=== PATIENT | male | born 1975 ===

== ENCOUNTER 2020-01-04 08:24 | Emergency (ER) | payer OTHER, SELFPAY ==
[2020-01-04 08:40] VITALS: BP 107/64; PULSE 68; RESP 16; TEMP 36.5; O2SAT 100; BMI 25.6
--- NOTE | 2020-01-04 08:59 | ED.SKABFB ---
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 Reports the rash is under his axillary aspect, behind his knees, and his groin area concern for possible scabies although has not been exposed to scabies that he knows of. Denies any additional complaints or concerns at this time. Related Data Previous Rx's Medication Instructions Recorded diphenhydramine HCl [Benadryl 25 mg PO TID PRN #20 tab 01/04/20 Allergy] famotidine [Pepcid] 20 mg PO BID #20 tab 01/04/20 loratadine [Claritin] 10 mg PO DAILY #20 tab 01/04/20 permethrin 1 applic TOPICAL Q14D #60 g 01/04/20 Allergies Allergy/AdvReac Type Severity Reaction Status Date / Time No Known Allergies Allergy Verified 01/04/20 08:52 Review of Systems Review of Systems: Constitutional : No Fever, No Chills , no body aches, no recent illness Head/Face: No facial swelling, No facial redness ENT/Mouth : No oral/throat swelling, No Hoarseness, No Swallowing Difficulty Eyes: No Eye Pain, No Swelling, No Redness Cardiovascular : No Chest Pain, No SOB, No palpitations Respiratory : No Cough, No Sputum, No Wheezing, No Smoke Exposure, No Dyspnea Gastrointestinal : No Nausea, No Vomiting, No Diarrhea, No abdominal Pain Genitourinary : No Dysuria, No Urinary Frequency, No Hematuria Musculoskeletal : No joint pain, No Myalgias, No Joint Swelling Skin : No Skin Lesions, positive rash Neuro : No Weakness, No Numbness, No Headache, No dizziness, No tingling Psych : No Anxiety/Panic, No Depression Heme/Lymph: No Bruising, No Lymphadenopathy Endocrine : No Polyuria, No Polydipsia Denies changes in lotions or detergents. Denies new medications or any changes in medications. Denies drainage from rash. Denies any recent sick contacts or recent travel. Yes all other systems are reviewed and are negative PMFSH Past Medical History Attestation statement: The following information was validated with the patient. Medical History No known health problems Social History Social History Advance Directives: No Advance Directives Information Provided: No Physical Exam Vital Signs: Vital Signs: Last Vital Signs Temp 97.7 F 01/04/20 08:40 Pulse 68 01/04/20 08:40 Resp 16 01/04/20 08:40 BP 107/64 01/04/20 08:40 Pulse Ox 100 01/04/20 08:40 Body Mass Index 25.6 vital signs have been reviewed as normal and appeared to be correct. Blood pressure normal. Heart rate normal. Respiration rate normal. Temperature normal. Oxygen saturation normal. Appearance: Alert. Oriented X3. No acute distress. Head: Normal external exam. Normocephalic. Atraumatic. No Mcnulty signs noted. No raccoon eyes noted Eyes: PERRLA. EOMI. Conjunctiva and sclera normal. Eyelids normal. ENT: EAC normal. TM's Normal. Pharynx normal. Uvula midline. Moist mucous membranes. No trismus noted. No drooling noted. No muffled voice noted. Neck: Normal inspection. Neck supple. FROM. No adenopathy. Thyroid Normal. No meningeal signs. No neck mass noted. CVS: Normal heart rate and rhythm. Heart sound normal. No murmurs noted. Pulses normal throughout. Respiratory: No respiratory distress. Painless inspiration. Breath sounds normal. No wheezes/rales/rhonchi noted. Chest nontender. No accessory muscle usage noted or decreased air movement noted. Abdomen: Soft and nontender. Bowel sounds normal in all 4 quadrants. No distention noted. No organomegaly noted. No visible injury noted. Back: No CVA tenderness. Full range of motion noted. Skin: Skin warm and dry. Normal skin color. Normal skin turgor. Prumacular papular lesions with burrows to axillary, folds behind the knee, in between the groin area. No signs of infection. No lacerations noted. Extremities: No lower extremity edema. Extremities exhibit normal range of motion. Extremities nontender. Neuro: Oriented X 3. No motor deficit. No sensory deficit. Reflexes normal. MDM - Skin/Abscess/Foreign Bdy Medical Records Attestation: I reviewed the patient's medical records. Discharge Plan Discharge Clinical Impression: Scabies, Rash Patient Disposition: Home, Self-Care Instructions: Scabies (ED) Prescriptions: New permethrin 5 % cream 1 applic topical Q14D Qty: 60 RF: 1 loratadine [Claritin] 10 mg tablet 10 mg PO DAILY Qty: 20 RF: 0 famotidine [Pepcid] 20 mg tablet 20 mg PO BID Qty: 20 RF: 0 diphenhydramine HCl [Benadryl Allergy] 25 mg tablet 25 mg PO TID PRN (Reason: itching) Qty: 20 RF: 0 Referrals: Mireille Plasencia MD [Primary Care Provider] - 2 days Stand Alone Forms: Work/School Release Print Language: Zimbabwean
== END 2020-01-04 09:24 | disposition home or self-care (01) ==
PROVIDERS: Emergency Provider Emergency Medicine; PCP Family Medicine
DX: B86 Scabies (principal); R21 Rash and other nonspecific skin eruption; Z79.899 Other long term (current) drug therapy
CPT/HCPCS: 99283

== ENCOUNTER → 2021-11-04 12:48 | Outpatient (BNVA) | payer SELFPAY | PROVIDERS: PCP Family Medicine; Visit Provider Physician Assistant | DX: Z02.79 Encounter for issue of other medical certificate (principal) ==

== ENCOUNTER 2021-12-17 13:06 | Emergency (ER) | payer OTHER, SELFPAY ==
--- NOTE | ~2021-12-17 | XR_ITS ---
EXAMINATION: XR CHEST CLINICAL INFORMATION: Bradycardia COMPARISON: None TECHNIQUE: Frontal view of the chest was obtained. FINDINGS: No significant abnormality is noted involving the heart, lungs, mediastinum, bony thorax or soft tissues. XR/XR chest 1V IMPRESSION: Unremarkable examination.
--- NOTE | 2021-12-17 13:08 | ECG_ITS ---
Test Reason : cp Blood Pressure : / mmHG Vent. Rate : 060 BPM Atrial Rate : 060 BPM P-R Int : 144 ms QRS Dur : 086 ms QT Int : 364 ms P-R-T Axes : 040 051 035 degrees QTc Int : 364 ms Normal sinus rhythm Normal ECG When compared with ECG of 28-JUN-2009 21:01, No significant change was found Referred By: Generic ED Physician Electronically Signed By:CARYL CARPENTER MD
[2021-12-17 13:10] VITALS: BP 127/76; PULSE 59; RESP 16; TEMP 36.6; O2SAT 98; BMI 25.6
[2021-12-17 13:20] LABS: MANUAL DIFF FLAG NO
[2021-12-17 13:22] LABS: Basophils Percent Auto 0.4 % (0-2); Eosinophils Absolute Auto 0.3 X10*3/uL (0.0-0.4); Eosinophils Percent Auto 3.2 % (0-4); Hematocrit 46.4 % (42.0-52.0); Hemoglobin 15.2 g/dl (14.0-18.0); Imm Gran Abs Auto 0.03 X10*3/uL (0.00-0.03); Imm Gran Pct Auto 0.4 % (0.0-0.4); Lymphocytes Absolute Auto 3.1 X10*3/uL (1.2-4.9); Lymphocytes Percent Auto 36.1 % (20-40); Mean Corpuscular HGB Conc 32.8 g/dl (31.0-36.0); Mean Corpuscular Hemoglobin 28.4 pg (27.0-33.0); Mean Corpuscular Volume 86.7 fL (80.0-98.0); Mean Platelet Volume 9.6 fL (9.4-12.4); Monocytes Absolute Auto 0.8 X10*3/uL (0.1-1.2); Neutrophils Absolute Auto 4.3 x10*3/uL (2.0-8.3); Neutrophils Percent Auto 50.9 % (45-73); Platelet Count 229 X10*3/uL (160-400); Red Blood Count 5.35 X10*6/uL (4.60-5.80); Red Cell Distribution Width 13.3 % (11.0-16.0); White Blood Count 8.5 X10*3/uL (4.8-10.8)
[2021-12-17 13:35] LABS: Anion Gap 15 (12-20); Blood Urea Nitrogen 12 mg/dL (9-16); Calcium 9.6 mg/dL (8.4-10.2); Carbon Dioxide 25 mmol/L (22-29); Chloride 105 mmol/L (96-108); Creatinine Clr Calc Pharmacy 108.2; Estimated Glomerular Filt Rate > 60; Glucose Random 66 mg/dL (60-115); Potassium 4.2 mmol/L (3.3-5.1); Sodium 141 mmol/L (135-145)
[2021-12-17 13:42] LABS: Troponin-I High Sensitivity < 3.5 ng/L (<3.5-35.0)
--- NOTE | 2021-12-17 16:34 | ED.CHESTPAIN ---
HPI - Chest Pain General Chief Complaint: Chest Pain Stated Complaint: Chest pain/L arm pain Time Seen by Provider: 12/17/21 16:33 Source: patient Mode of arrival: ambulatory Limitations: no limitations History of Present Illness HPI narrative: Patient is a 46 year old assigned male at with a history of varicose veins presenting to the emergency department today with left sided chest pain and dizziness. Patient states that he has had 2 episodes of left sided chest pain and dizziness. Patient states that the first episode was yesterday and resolved, patient states that the second one was today and it has also resolved. 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 Patient denies any current dizziness, lightheadedness, abdominal pain, nausea, vomiting, fever, chills, blurry vision, double vision, loss of vision, chest pain, difficulty breathing, shortness of breath, back pain, night sweats, pain with urination, increased urinary frequency, increased urinary urgency, blood in his urine or stool, syncope or a near syncopal episode, recent trauma or falls, bowel incontinence, bladder incontinence, bowel retention, bladder retention, or any other complaints at this time. 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) Pain location: left chest Pain radiation: none Severity: mild Pain scale (0-10): 5 Quality: heaviness and dull Relieving factors: nothing Exacerbating factors: nothing Treatment prior to arrival: none Related Data Home Medications Medication Instructions Recorded Confirmed propranolol 60 mg tablet 60 mg PO ONCE 11/04/21 Previous Rx's Medication Instructions Recorded diphenhydramine HCl 25 mg tablet 25 mg PO TID PRN itching #20 tabs 01/04/20 (Benadryl Allergy) famotidine 20 mg tablet (Pepcid) 20 mg PO BID #20 tabs 01/04/20 loratadine 10 mg tablet (Claritin) 10 mg PO DAILY allergies/itching 01/04/20 #20 tabs permethrin 5 % topical cream 1 applic topical Q14D scabies 2 01/04/20 doses #60 grams Allergies Allergy/AdvReac Type Severity Reaction Status Date / Time No Known Allergies Allergy Verified 11/04/21 13:48 Review of Systems Constitutional: Constitutional: Reports no additional constitutional complaints, Denies chills, Denies fever(s) and Denies night sweats Eyes: Eyes: Reports no additional eye complaints, Denies blurry vision, Denies change in vision, Denies diplopia, Denies eye discharge, Denies loss of vision and Denies eye pain ENT: Denies dizziness Cardiovascular: Cardiovascular: Reports no additional cardiovascular complaints, Denies chest pain, Denies lightheadedness, Denies Loss of Consciousness and Denies dyspnea Respiratory: Respiratory: Reports no additional respiratory complaints and Denies dyspnea Gastrointestinal: Gastrointestinal: Reports no additional gastrointestinal complaints, Denies abdominal pain, Denies melena, Denies hematochezia, Denies change in bowel habits and Denies change in stool character Genitourinary: Genitourinary: Reports no additional male genitourinary complaints, Denies hematuria, Denies oliguria, Denies difficulty urinating, Denies dysuria, Denies urinary frequency, Denies urinary hesitancy, Denies urinary incontinence and Denies urinary urgency Musculoskeletal: Musculoskeletal: Reports no additional musculoskeletal complaints, Denies numbness and Denies tingling Neurologic: Denies dizziness, Denies loss of vision, Denies numbness and Denies tingling Psychiatric: Psychiatric: Reports no additional psychiatric complaints Endocrine: Endocrine: Reports no additional endocrine complaints Hematologic/Lymphatic: Hematologic/Lymphatic: Reports no additional hematologic/lymphatic complaints Allergic/Immunologic: Allergic/Immunologic: Reports no additional allergic/immunologic complaints PMFSH Past Medical History Attestation statement: The following information was validated with the patient. Source: old records reviewed Medical History No known health problems Social History Social History Patient Tobacco Use Status: Current everyday Tobacco user Tobacco use type: Cigarette Cigarettes Per Day: 6 Use of substances other than those prescribed or required for medical reasons: No Advance Directives: No Physical Exam Vital Signs: Vital Signs: Last Vital Signs Temp 98 F 12/17/21 13:10 Pulse 56 12/17/21 16:47 Resp 16 12/17/21 16:47 BP 105/65 12/17/21 16:47 Pulse Ox 97 12/17/21 16:47 O2 Del Method 12/17/21 16:47 BMI result Body Mass Index 25.6 Const: General: cooperative, no acute distress, alert and awake Nutritional Appearance: well nourished Orientation/consciousness: patient oriented x3 Limitations: no limitations HEENT: Head: Yes normal to inspection and Yes atraumatic Ears: hearing grossly normal bilaterally and external ears normal General nose exam: Normal external nose present, no nasal discharge noted and no epistaxis Face and sinus: Yes normal facial exam, No abrasion and No laceration Mouth: Normal oral and palatal mucosa present, no drooling and no muffled voice Eyes: General: appearance normal, both eyes and all related structures Periorbital: periorbital findings normal Eyelids: Yes eyelids normal Conjunctivae: conjunctivae normal Pupils: Equal, round and reactive pupils present EOM: EOMs intact bilaterally Neck: Neck: Yes normal visual inspection, Yes full ROM and Yes no lymphadenopathy Chest: Chest palpation & inspection: normal inspection of the chest Resp: Effort & Inspection: normal respiratory effort and able to speak in complete sentences Auscultation: clear to auscultation bilaterally Cardio: Rate: regular rate Rhythm: regular rhythm GI: Inspection: Yes normal to inspection Neuro: General: patient oriented x3 and moves all extremities Cranial nerves: Yes Equal, round and reactive pupils present Cognition (Neuro): normal cognition Motor exam (neuro): 5/5 motor strength present throughout Sensory Exam: Normal double simultaneous stimulation for sensation Coordination: [id number] test normal Extrem: General: Yes normal to inspection, Yes full ROM and Yes capillary refill normal Psych: Appearance: grossly normal Mental Status: mental status grossly normal Affect: normal affect Attitude: cooperative Thought process: Normal thought process present Thought content: Normal thought content present Insight: Good insight present (Psych) MDM - Chest Pain MDM Narrative Medical decision making narrative: Patient is a 46 year old assigned male at with a history of varicose veins presenting to the emergency department today with chest pain that has resolved. Patient's physical exam was unremarkable. Patient's blood work was unremarkable including a normal troponin and d dimer. Patient's EKG was unremarkable. Patient's chest x-ray showed no acute process. I explained my physical exam findings as well as all test results to the patient. I answered all questions asked by the patient. I stressed the importance of the patient taking his medication as prescribed. 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 I stressed the importance of the patient returning to the emergency department immediately if his symptoms were to worsen or if he were to develop any dizziness, shortness of breath, difficulty breathing, chest pain, blurry vision, loss of vision, nausea, vomiting, abdominal pain, fever, chills, back pain, or any other complaints. Patient verbalized agreement and understanding with this treatment plan and discharge. Differential Diagnosis Differential diagnosis: Likely atypical chest pain Medical Records Data Attestation: I reviewed the patient's medical records. Lab Data Attestation: I reviewed the patient's lab results. Result diagrams: 12/17/21 13:17 12/17/21 13:17 Labs: Lab Results 12/17/21 12/17/21 12/17/21 Range/Units 13:17 13:17 13:17 WBC 8.5 (4.8-10.8) X10*3/uL RBC 5.35 (4.60-5.80) X10*6/uL Hgb 15.2 (14.0-18.0) g/dl Hct 46.4 (42.0-52.0) % MCV 86.7 (80.0-98.0) fL MCH 28.4 (27.0-33.0) pg MCHC 32.8 (31.0-36.0) g/dl RDW 13.3 (11.0-16.0) % Plt Count 229 (160-400) X10*3/uL MPV 9.6 (9.4-12.4) fL Immature Gran % (Auto) 0.4 (0.0-0.4) % Neut % (Auto) 50.9 (45-73) % Lymph % (Auto) 36.1 (20-40) % [place] % (Auto) 9.0 (2-11) % Eos % (Auto) 3.2 (0-4) % Baso % (Auto) 0.4 (0-2) % Lymph # (Auto) 3.1 (1.2-4.9) X10*3/uL [place] # (Auto) 0.8 (0.1-1.2) X10*3/uL Eos # (Auto) 0.3 (0.0-0.4) X10*3/uL Baso # (Auto) 0.0 (0.0-0.2) X10*3/uL Abs Immat Gran (auto) 0.03 (0.00-0.03) X10*3/uL Absolute Neuts (auto) 4.3 (2.0-8.3) x10*3/uL Absolute Nucleated RBC 0.000 (0.0-0.012) X10*3/uL Nucleated RBC % (auto) 0.0 (0.0-0.2) /100WBC D-Dimer High Sensitivty NG/ML Sodium 141 (135-145) mmol/L Potassium 4.2 (3.3-5.1) mmol/L Chloride 105 (96-108) mmol/L Carbon Dioxide 25 (22-29) mmol/L Anion Gap 15 (12-20) BUN 12 (9-16) mg/dL Creatinine 1.03 (0.5-1.4) mg/dL Estim Creat Clear Calc 108.2 Estimated GFR > 60 Random Glucose 66 (60-115) mg/dL Calcium 9.6 (8.4-10.2) mg/dL Troponin I High Sens < 3.5 (<3.5-35.0) ng/L 12/17/21 Range/Units 16:50 WBC (4.8-10.8) X10*3/uL RBC (4.60-5.80) X10*6/uL Hgb (14.0-18.0) g/dl Hct (42.0-52.0) % MCV (80.0-98.0) fL MCH (27.0-33.0) pg MCHC (31.0-36.0) g/dl RDW (11.0-16.0) % Plt Count (160-400) X10*3/uL MPV (9.4-12.4) fL Immature Gran % (Auto) (0.0-0.4) % Neut % (Auto) (45-73) % Lymph % (Auto) (20-40) % [place] % (Auto) (2-11) % Eos % (Auto) (0-4) % Baso % (Auto) (0-2) % Lymph # (Auto) (1.2-4.9) X10*3/uL [place] # (Auto) (0.1-1.2) X10*3/uL Eos # (Auto) (0.0-0.4) X10*3/uL Baso # (Auto) (0.0-0.2) X10*3/uL Abs Immat Gran (auto) (0.00-0.03) X10*3/uL Absolute Neuts (auto) (2.0-8.3) x10*3/uL Absolute Nucleated RBC (0.0-0.012) X10*3/uL Nucleated RBC % (auto) (0.0-0.2) /100WBC D-Dimer High Sensitivty < 150 NG/ML Sodium (135-145) mmol/L Potassium (3.3-5.1) mmol/L Chloride (96-108) mmol/L Carbon Dioxide (22-29) mmol/L Anion Gap (12-20) BUN (9-16) mg/dL Creatinine (0.5-1.4) mg/dL Estim Creat Clear Calc Estimated GFR Random Glucose (60-115) mg/dL Calcium (8.4-10.2) mg/dL Troponin I High Sens (<3.5-35.0) ng/L Imaging Data Chest x-ray: Attestation: I personally reviewed and interpreted this imaging study as follows: My impression: No acute process. Radiologist's impression: EXAMINATION: XR CHEST CLINICAL INFORMATION: Bradycardia COMPARISON: None TECHNIQUE: Frontal view of the chest was obtained. FINDINGS: No significant abnormality is noted involving the heart, lungs, mediastinum, bony thorax or soft tissues. XR/XR chest 1V IMPRESSION: Unremarkable examination. Dictated By: Nehal Rios MD Signed By: Electronically signed by Nehal Rios MD 12/17/21 1505 ECG Data ECG #1: Attestation: I personally reviewed and interpreted this ECG as follows: ECG interpretation date: 12/17/21 ECG interpretation time: 13:11 Prior ECG tracings: available for review Interpretation: Vent. Rate: 060 BPM ? ? Atrial Rate: 060 BPM P-R Int: 144 ms? QRS Dur: 086 ms QT Int: 364 ms ? ? ? P-R-T Axes: 040 051 035 degrees QTc Int: 364 ms ? 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 Return to the emergency department immediately if your symptoms worsen or if you develop any dizziness, shortness of breath, difficulty breathing, chest pain, blurry vision, loss of vision, nausea, vomiting, abdominal pain, fever, chills, back pain, or any other complaints. Prescriptions: No Action permethrin 5 % cream 1 applic topical Q14D Qty: 60 1RF Rx Instructions: apply second treatment 14 days after first treatment if live lice remain loratadine [Claritin] 10 mg tablet 10 mg PO DAILY Qty: 20 0RF famotidine [Pepcid] 20 mg tablet 20 mg PO BID Qty: 20 0RF diphenhydramine HCl [Benadryl Allergy] 25 mg tablet 25 mg PO TID PRN (Reason: itching) Qty: 20 0RF propranolol 60 mg tablet 60 mg PO ONCE Referrals: [facility] [place] [facility] [Provider Group] (Call to establish and follow up with a farmworkers. ) Mireille Plasencia MD [Primary Care Provider] - Stand Alone Forms: Work/School Release Print Language: German
--- OUTSIDE RECORDS SUMMARY | 2021-12-17 16:43 | XMS_ITS | Continuity of Care Document ---
:1975 Author Organization [facility] Address [address] [place] [address]- Care Team Providers Name Role Phone Luis Angel BROWN, Mireille Dennis Primary Care Physician Encounter [facility] Date(s): 12/30/19 - 01/29/[address] [address]- Attending Physician: Jorge Barbosa Admitting Physician: Jorge Barbosa Referring Physician: AdmJorge watt Allergies, Adverse Reactions, Alerts No Known Medication Allergies Medications Zoloft 50 mg oral tablet 1 tablet = 50 mg, By Mouth, Daily, 0 Refills, Maintenance, 11/07/19 10:53:00 EDT Start Date: 11/07/19 Status: Ordered Social History Social History Type Response Smoking Status Current every day smoker entered on: 07/02/16 Sex
[2021-12-17 16:47] VITALS: BP 105/65; PULSE 56; RESP 16; O2SAT 97
[2021-12-17 17:11] LABS: D Dimer High Sensitivity < 150 NG/ML
== END 2021-12-17 17:53 | disposition home or self-care (01) ==
PROVIDERS: Physician Assistant Medical; Emergency Provider Emergency Medicine; PCP Family Medicine
DX: R07.89 Other chest pain (principal); R00.1 Bradycardia, unspecified; M79.602 Pain in left arm; F17.210 Nicotine dependence, cigarettes, uncomplicated; Z71.6 Tobacco abuse counseling; Z79.899 Other long term (current) drug therapy
CPT/HCPCS: 36415; 71045; 80048; 84484; 85025; 85379; 93005; 99283; 99284

== ENCOUNTER 2022-01-04 10:22 | Outpatient (REF) | payer OTHER, SELFPAY ==
--- NOTE | ~2022-01-04 | US_ITS ---
EXAMINATION: RIGHT and LEFT LOWER EXTREMITY VENOUS ULTRASOUND (Reflux Exam) CLINICAL INDICATION: leg pain and varicose veins. COMPARISON: None. TECHNIQUE: Color flow triplex imaging and compression Doppler was performed to evaluate both the deep and the superficial systems bilaterally. To evaluate the superficial system, the examination was performed in the upright position. Color-flow Doppler ultrasound and compression ultrasound were utilized. In addition, maneuvers were utilized to demonstrate reflux. FINDINGS: 1. DEEP VENOUS ULTRASOUND OF THE RIGHT LOWER EXTREMITY: Respiratory variation, normal compression and augmented flow are noted in the right common femoral vein as well as the right popliteal vein and there is no evidence of deep venous thrombosis at these locations. There is reflux in the deep system in the common femoral vein vein measuring 1.3 seconds and The popliteal vein measuring 2.4 seconds. There is no evidence of a Duran's cyst. 2. SUPERFICIAL ULTRASOUND WITH DOPPLER OF RIGHT LOWER EXTREMITY: The right great saphenous vein at the saphenofemoral junction measures 8 mm, at the mid thigh 4 mm, [id number] 3 mm, gweel-sgg-fseb 2 mm, at mid calf 2 mm and at the ankle measures 2 mm. There is reflux demonstrated in the right great saphenous vein in the mid calf measuring 0.7 seconds. There is a lateral accessory greater saphenous vein measuring 1 to 2 mm without reflux. The right small saphenous vein measures 3 mm and shows no reflux. 3. DEEP VENOUS ULTRASOUND OF THE LEFT LOWER EXTREMITY: Respiratory variation, normal compression and augmented flow are noted in the left common femoral vein as well as the left popliteal vein and there is no evidence of deep venous thrombosis at these locations. There is no evidence of reflux in the deep system in either the common femoral vein or the popliteal vein. . There is no evidence of a Duran's cyst. 4. SUPERFICIAL ULTRASOUND WITH DOPPLER OF LEFT LOWER EXTREMITY: Left great saphenous vein at the saphenofemoral junction measures 7 mm, at the mid thigh 3 mm, gyxhv-wzy-bior 3 mm, kxscs-wek-luyk 2 mm, at mid calf 2 mm and at the ankle measures 2 mm. There is reflux demonstrated in the left great saphenous vein measuring greater than 3.4 seconds in the proximal thigh and 0.7 seconds in the mid thigh. There is an accessory lateral greater saphenous vein that measures 2 mm and does not demonstrate reflux. The left small saphenous vein measures 2 mm and shows no reflux. US/US venous duplex LE BI IMPRESSION: 1. No evidence of thrombus. Right common femoral and popliteal vein deep venous reflux. No left deep venous reflux. 2. Bilateral greater saphenous vein reflux.
== END 2022-01-04 10:23 | disposition home or self-care (01) ==
LOC: HO.US 10:22
PROVIDERS: Visit Provider Surgery Vascular Surgery
DX: I83.12 Varicose veins of left lower extremity with inflammation (principal)
CPT/HCPCS: 93970

== ENCOUNTER → 2022-02-25 08:30 | Outpatient (BNVA) | payer OTHER, SELFPAY | PROVIDERS: PCP Family Medicine; Visit Provider Surgery Vascular Surgery | DX: I83.12 Varicose veins of left lower extremity with inflammation (principal) | CPT/HCPCS: 36482 ==

== ENCOUNTER 2022-02-28 15:23 | Outpatient (REF) | payer OTHER, SELFPAY ==
--- NOTE | ~2022-02-28 | US_ITS ---
EXAMINATION: TRIPLEX SCANNING OF LEFT LOWER EXTREMITY; SUPERFICIAL ULTRASOUND WITH DOPPLER OF LEFT LOWER EXTREMITY CLINICAL INFORMATION: Status post Venaseal of the left great saphenous vein Ambulatory phlebectomy performed: No COMPARISON: Venous reflux exam 01/04/2022. TECHNIQUE: Color flow triplex imaging and compression Doppler were performed as well as superficial ultrasound with Doppler. FINDINGS: LEFT LOWER EXTREMITY DEEP VENOUS SYSTEM: Respiratory variation, normal compression and augmented flow are noted throughout the lower extremity. The visualized common femoral vein, femoral vein, profunda femoral vein, popliteal vein and the calf veins show no evidence of deep venous thrombosis. There is no evidence of Duran's cyst. SUPERFICIAL VENOUS SYSTEM: The great saphenous vein is occluded from the access site to 2 cm before the saphenofemoral junction. There is no extension of thrombus into the deep system. US/US venous duplex LE LT IMPRESSION: No evidence of DVT.
== END 2022-02-28 15:24 | disposition home or self-care (01) ==
LOC: HO.US 15:23
PROVIDERS: PCP Family Medicine; Visit Provider Surgery Vascular Surgery
DX: M79.605 Pain in left leg (principal)
CPT/HCPCS: 93971

== ENCOUNTER → 2022-03-15 11:40 | Outpatient (BNVA) | payer OTHER, SELFPAY | PROVIDERS: PCP Nurse Practitioner Family; Visit Provider Surgery Vascular Surgery | DX: Z13.89 Encounter for screening for other disorder (principal) ==

== ENCOUNTER 2023-10-18 16:31 | Outpatient (REF) | payer OTHER, SELFPAY | END 2023-10-18 16:32 | disposition home or self-care (01) | LOC: HO.HOSX 16:31 | PROVIDERS: Visit Provider Orthopaedic Surgery | DX: Z13.89 Encounter for screening for other disorder (principal) ==

== ENCOUNTER 2023-11-01 14:08 | Outpatient (REF) | payer OTHER, SELFPAY ==
--- NOTE | ~2023-11-01 | XR_ITS ---
EXAMINATION: XR SHOULDER, RIGHT CLINICAL INFORMATION: Shoulder pain COMPARISON: None available. TECHNIQUE: Two views of the right shoulder. FINDINGS: The bones and soft tissues are normal. No fracture. Glenohumeral and acromioclavicular alignment is anatomic with normal joint space. No abnormal soft tissue calcifications. XR/XR shoulder RT min 2V IMPRESSION: Normal right shoulder radiographs. Electronically signed by: Henri Mathias MD 11/14/2023 10:07 PM EDT
== END 2023-11-01 14:09 | disposition home or self-care (01) ==
LOC: HO.HOSX 14:08
PROVIDERS: PCP Nurse Practitioner Family; Visit Provider Orthopaedic Surgery
DX: M25.511 Pain in right shoulder (principal)
CPT/HCPCS: 73030

== ENCOUNTER 2023-11-01 14:38 | Outpatient (AMB) | payer OTHER, SELFPAY ==
--- NOTE | 2023-11-01 14:46 | MHC.OFFVIS ---
Intake Visit Reasons: right shoulder pain Intake Note: Harjeet is a 48 year old right-hand dominant male who presents with complaints of right shoulder pain and weakness. The patient did undergo right shoulder surgery in 2001 in [place], [place]. The patient states that he initially got good relief from the surgery. The patient states that several years ago he re-injured his right shoulder while lifting a heavy object. Since that time he has had weakness when lifting his right hand above shoulder height. He has had injections in the past which gave him minimal relief. He has also done physical therapy which aggravated his pain. He has tried Tylenol and anti-inflammatory medicines which gave him minimal relief. The patient has failed the last 6 weeks of conservative treatment. Allergies No Known Allergies Allergy (Verified 11/01/23 14:49) Medication List - Last Reconciled 11/02/23 by Joel Vargas MD diphenhydramine HCl (Benadryl Allergy) 25 mg PO TID PRN propranolol 60 mg PO ONCE PFSH Medical History No known health problems Social History Patient Tobacco Use Status: Current everyday Tobacco user Tobacco use type: Cigarette Cigarettes Per Day: 6 Physical Exam Const Other: Well-nourished well-developed very friendly male awake alert and oriented x3 in no acute distress Extrem Other: Bilateral upper extremity examination shows good capillary refill, no skin lesions noted, normal sensation light touch Right shoulder examination shows decreased range of motion when compared to his left shoulder, 4/5 strength with supraspinatus testing, positive impingement signs, tenderness over his acromioclavicular joint Results Reviewed Results Reviewed: X-rays of the patient's right shoulder show severe acromioclavicular joint narrowing, a type 2 acromion, no acute bony abnormalities Assessment & Plan Assessment & Plan (1) Right shoulder pain: Code(s): M25.511 - Pain in right shoulder Category: Medical Plan Mr. Mckeon presents with recurrent right shoulder pain and weakness possibly due to a full-thickness rotator cuff tear. Thus, I will send the patient for an MRI of his right shoulder for further evaluation. I will see him back once the MRI is completed to discuss the findings and treatment options. Feel free to call me at any time should questions regarding his orthopedic management arise. Thank you very much for asking me to see this very friendly patient. I spent 22 minutes in reviewing the patient's records and imaging studies, seeing the patient and documenting in the medical record. Orders: Orders XR shoulder LT min 2V 10/18/23 M25.512 - Pain in left shoulder MR shoulder RT wo con Today M25.511 - Pain in right shoulder Medications: Refilled diphenhydramine HCl (Benadryl Allergy) 25 mg PO TID PRN 20 tabs 0RF itching Coding Level of Care Code New Pt Level 3 (75723) Complex EM visit Add On G2211 Diagnoses Right shoulder pain M25.511
== END 2023-11-01 15:17 | disposition home or self-care (01) ==
PROVIDERS: PCP Nurse Practitioner Family; Visit Provider Orthopaedic Surgery
DX: M25.511 Pain in right shoulder (principal)
CPT/HCPCS: 99203

== ENCOUNTER → 2023-11-03 14:34 | Outpatient (BNVA) | payer SELFPAY | PROVIDERS: PCP Nurse Practitioner Family; Visit Provider Physician Assistant Medical | DX: Z02.79 Encounter for issue of other medical certificate (principal) ==

== ENCOUNTER 2023-11-29 18:54 | Outpatient (REF) | payer OTHER, SELFPAY ==
--- NOTE | ~2023-11-29 | MR_ITS ---
EXAMINATION: MR SHOULDER WITHOUT CONTRAST, RIGHT CLINICAL INFORMATION: Right shoulder pain radiating down the right arm. Remote surgery. COMPARISON: Right shoulder radiographs dated 11/01/2023. TECHNIQUE: MRI of the shoulder without contrast was performed on a high-field scanner. FINDINGS: Evaluation somewhat limited secondary to patient motion. ROTATOR CUFF: Mild supraspinatus tendinosis with anterior articular surface fraying. Mild infraspinatus tendinosis with bursal surface partial tearing measuring approximately 1.1 x 1.4 cm (AP x ML). Complete, full-thickness tear of the subscapularis tendon with retraction of the torn tendon fibers to the glenohumeral articulation. [id number] subscapularis muscle atrophy. BICEPS: Intact. CORACOACROMIAL ARCH: The undersurface of the acromion is flat with no subacromial spur. Mild acromioclavicular osteoarthritis. Trace fluid within subacromial subdeltoid bursa, consistent with minimal bursitis. LABRUM/CAPSULE: No displaced labral tear. Intact inferior joint capsule. GLENOHUMERAL JOINT/MARROW: Intact articular cartilage. No acute osseous injury. Degenerative cystic change at the anterior aspect of the greater tuberosity. Trace glenohumeral joint effusion. MR/MR shoulder RT wo con IMPRESSION: 1. Complete, full-thickness tear of the subscapularis tendon with retraction of the torn tendon fibers to the glenohumeral articulation. [id number] subscapularis muscle atrophy. 2. Mild supraspinatus tendinosis with anterior articular surface fraying. Mild infraspinatus tendinosis with bursal surface partial tearing. 3. Mild acromioclavicular osteoarthritis. 4. Minimal subacromial subdeltoid bursitis. 5. Trace glenohumeral joint effusion. Electronically signed by: Mathew Kiser MD 12/06/2023 02:38 PM EDT
== END 2023-11-29 18:55 | disposition home or self-care (01) ==
LOC: HO.MRI 18:54
PROVIDERS: PCP Nurse Practitioner Family; Visit Provider Orthopaedic Surgery
DX: M25.511 Pain in right shoulder (principal)
CPT/HCPCS: 73221

== ENCOUNTER 2023-12-19 14:56 | Outpatient (AMB) | payer OTHER, SELFPAY ==
--- NOTE | 2023-12-19 15:08 | MHC.OFFVIS ---
Vital Signs 12/19/23 15:09 Height 6 ft 3 in Weight 190 lb BMI 23.7 Handedness Right Intake Visit Reasons: MRI Review of Right Shoulder Intake Note: Harjeet is a 48 year old right-hand dominant male who presents with complaints of intermittent right shoulder pain. 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 The patient did undergo right shoulder surgery in 2001 in [place], [place]. The patient states that he initially got good relief from the surgery. The patient states that several years ago he re-injured his right shoulder. Since that time he has had weakness when lifting his right hand above shoulder height. He has also done physical therapy which aggravated his pain. He has tried Tylenol and anti-inflammatory medicines which gave him minimal relief. 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 Physical Exam Vital Signs: BMI result Body Mass Index 23.7 Const Other: Well-nourished well-developed very friendly male awake alert and oriented x3 in no acute distress Extrem Other: Right shoulder examination shows almost full range of motion when compared to his left shoulder, 4+ out of 5 strength with supraspinatus testing, positive impingement signs, positive lift-off test, no instability Results Reviewed Results Reviewed: MRI report of the patient's right shoulder shows mild supraspinatus tendinosis, mild infraspinatus tendinosis, a complete, full-thickness tear of the subscapularis tendon Assessment & Plan Assessment & Plan (1) Right shoulder pain: Code(s): M25.511 - Pain in right shoulder Category: Medical Plan Mr. Mckeon presents with right shoulder pain and weakness due to a full-thickness subscapularis tendon tear. I had a lengthy discussion with the patient regarding the treatment options. Based on the size of the tear I am not sure that the tear is reparable at this point. I would like the patient to have a consultation with my partner, Dr. Jurado, for his input and possible subscapularis tendon repair. The patient will continue with his range of motion exercises in the meantime. Feel free to call me at any time should questions regarding his orthopedic management arise. I spent 20 minutes in reviewing the patient's records and imaging studies, seeing the patient and documenting in the medical record. Coding Level of Care Code Est Pt Level 3 (30709) Complex EM visit Add On G2211 Diagnoses Right shoulder pain M25.511
[2023-12-19 15:09] VITALS: BMI 23.7
== END 2023-12-19 15:45 | disposition home or self-care (01) ==
LOC: HO.HOS 14:57
PROVIDERS: PCP Nurse Practitioner Family; Visit Provider Orthopaedic Surgery
DX: M25.511 Pain in right shoulder (principal)
CPT/HCPCS: 99213

== ENCOUNTER → 2023-12-19 14:56 | Outpatient (BNVA) | payer OTHER, SELFPAY | PROVIDERS: PCP Nurse Practitioner Family; Visit Provider Orthopaedic Surgery ==